=== PATIENT | male | born 1990 | race Two or more races ===

== ENCOUNTER 2022-04-25 21:22 | Emergency (ER) | payer BC ==
[~2022-04-25] VITALS: Ht 193 cm; Wt 127.0 kg
[2022-04-25 22:16] VITALS: BP 129/96
[2022-04-25 23:03] LABS: Urine Bacteria NONE SEEN /hpf (None Seen); Urine Blood 1+ /uL (Negative); Urine Mucus MANY (None Seen); Urine Specific Gravity 1.038 (1.001-1.035); Urine WBC 4 /hpf (0 - 3)
== END 2022-04-26 05:41 | disposition left against medical advice (07) ==
LOC: ER 21:22
DX: J02.9 Acute pharyngitis, unspecified (principal); M54.59 Other low back pain; H92.03 Otalgia, bilateral; Z53.21 Procedure and treatment not carried out due to patient leaving prior to being seen by health care provider; Z20.822 Contact with and (suspected) exposure to COVID-19
CPT/HCPCS: 36415; 81001